=== PATIENT | male | born 1965 | race Caucasian/White ===

== ENCOUNTER 2022-02-07 09:13 | Outpatient (CLI) | payer BC | END 2022-02-07 09:14 | disposition home or self-care (01) | LOC: BURRAD 09:13 | PROVIDERS: ATTEND Family Medicine | DX: M62.830 Muscle spasm of back (principal); M50.322 Other cervical disc degeneration at C5-C6 level; J98.6 Disorders of diaphragm | CPT/HCPCS: 72040; 72072 ==